=== PATIENT | female | born 1975 ===

== ENCOUNTER 2017-11-12 09:16 | Observation (INO) | payer OTHER ==
[2017-11-12 09:22] VITALS: BMI 34.7
--- NOTE | 2017-11-12 11:04 | ED PDOC ---
HPI: Hypertension/Hypotension Chief Complaint (Provider): high blood pressure History Per: Patient History/Exam Limitations: no limitations Onset/Duration Of Symptoms: Mins Current Symptoms Are (Timing): Still Present Associated Symptoms: denies: Chest Pain, Dyspnea, Dizziness, Blurred Vision, Focal Weakness, Headache Quality Of Symptoms: Asymptomatic Additional History Per: Patient Additional Complaint(s): 42 yr old F presents to ED with complaint of elevated blood pressure after being sent from [facility]. Patient denies any PMHx. Denies headache, once sided weakness or numbness, dizziness, chest pain, visual changes, SOB, fevers, chills, dysuria or sweating. Reports she had a recent abnormal mammogram and was going to be evaluated for possible right breast biopsy. Today she did not eat or drink anything before leaving the house and felt very nervous about seeing marketing services specialist. LMP: 11/12/17 PMD: Micheal Joseph PMHx: obesity, recent abnormal mammogram (suspicious right breast nodule) SurgHx: appendectomy, right oophorectomy (d/t fibroid removal) FMHx: mother has HTN and was diagnosed with uterine cancer at 45 yrs old, father is 65 yrs old has HTN, siblings are healthy Medications: Meredith PRN Allergies: NKDA <Donya Pruitt - Last Filed: 11/12/17 13:17> Additional Complaint(s): High bp at clnic. No chest pain. <Jasen Heart - Last Filed: 11/12/17 13:55> Time Seen by Provider: 11/12/17 09:44 Chief Complaint (Nursing): High Blood Pressure Past Medical History Vital Signs: Last Vital Signs Temp 98.1 F 11/12/17 09:22 Pulse 90 11/12/17 09:22 Resp 18 11/12/17 10:12 BP 160/100 H 11/12/17 10:12 Pulse Ox 97 11/12/17 10:12 - Medical History PMH: No Chronic Diseases - Surgical History Surgical History: Appendectomy Other surgeries: right oophorectomy (d/t fibroid removal) - Family History Family History: States: Hypertension, Other Other Family History: mother has HTN and was diagnosed with uterine cancer at 45 yrs old, father is 65 yrs old has HTN, siblings are healthy - Living Arrangements Living Arrangements: With Family - Social History Current smoker - smoking cessation education provided: No Ex-Smoker (has not smoked in the last 12 months): No Alcohol: None Drugs: Denies <Donya Pruitt - Last Filed: 11/12/17 13:17> Reviewed: Nursing Documentation, Vital Signs Vital Signs: Last Vital Signs Temp 98.1 F 11/12/17 09:22 Pulse 88 11/12/17 13:37 Resp 20 11/12/17 13:37 BP 180/115 H 11/12/17 13:37 Pulse Ox 98 11/12/17 13:37 - Medical History PMH: No Chronic Diseases <Jasen Heart - Last Filed: 11/12/17 13:55> - Home Medications Home Medications: Ambulatory Orders Medication Instructions Recorded No Known Home Med 11/12/17 - Allergies Allergies/Adverse Reactions: Allergies Allergy/AdvReac Type Severity Reaction Status Date / Time No Known Allergies Allergy Verified 11/12/17 10:11 Review of Systems Constitutional: Negative for: Fever, Chills, Weakness Eyes: Negative for: Vision Change ENT: Negative for: Ear Pain, Nose Discharge, Throat Pain Cardiovascular: Negative for: Chest Pain, Palpitations, Edema, Light Headedness Respiratory: Negative for: Cough, Shortness of Breath, Hemoptysis, Wheezing Gastrointestinal: Negative for: Nausea, Vomiting, Abdominal Pain, Diarrhea, Constipation Genitourinary Female: Negative for: Dysuria, Frequency Musculoskeletal: Negative for: Neck Pain, Shoulder Pain, Arm Pain Skin: Negative for: Rash, Lesions Neurological: Negative for: Weakness, Numbness, Confusion, Seizures, Headache, Dizziness Psych: Negative for: Anxiety, Depression <Donya Pruitt - Last Filed: 11/12/17 13:17> Physical Exam - Physical Exam Appears: Positive for: No Acute Distress Head Exam: Positive for: ATRAUMATIC, NORMOCEPHALIC Skin: Positive for: Normal Color, Warm, Dry Eye Exam: Positive for: EOMI, PERRL ENT: Positive for: Normal ENT Inspection Neck: Positive for: Painless ROM, Supple Cardiovascular/Chest: Positive for: Regular Rate, Rhythm. Negative for: Gallop , JVD, Murmur, Tachycardia Respiratory: Positive for: Normal Breath Sounds. Negative for: Crackles, Rales , Rhonchi Pulses-Carotid (L): 2+ Pulses-Carotid (R): 2+ Pulses-Radial (L): 2+ Pulses-Radial (R): 2+ Gastrointestinal/Abdominal: Positive for: Normal Exam Extremity: Positive for: Normal ROM. Negative for: Pedal Edema, Calf Tenderness Neurologic/Psych: Positive for: Alert, salad chef II-XII (grossly intact), Oriented, Mood/Affect (normal/full), Gait (normal). Negative for: Motor/Sensory Deficits <Donya Pruitt - Last Filed: 11/12/17 13:17> - Physical Exam Neck: Positive for: Painless ROM Cardiovascular/Chest: Positive for: Regular Rate, Rhythm <Jasen Heart - Last Filed: 11/12/17 13:55> - Laboratory Results Result Diagrams: 11/12/17 11:14 11/12/17 11:14 - ECG O2 Sat by Pulse Oximetry: 97 - Progress ED Course And Treament: -EKG: nonspecific ST-T wave depression in lead I, V4-V6 -cardiac monitoring -10:12 Patient in no acute distress, BP improved to 160/100 mmHg without medication -11:12 Patient tolerating PO fluids and solids -11:14 BP 180/109 mmHg, Clonidine 0.1 mg PO once ordered -12:30 BP 197/126 mmHg, labetalol 10mg IV once ordered -repeat EKG 13:[address]-T wave depression persists in lead I <Donya Pruitt - Last Filed: 11/12/17 13:17> - Laboratory Results Result Diagrams: 11/12/17 11:14 11/12/17 11:14 Interpretation Of Abn Labs: no acute - ECG ECG: Positive for: Interpreted By Me, Viewed By Me ECG Rhythm: Positive for: Nonspecific Changes Pulse Ox Interpretation: Normal - Progress ED Course And Treament: 1354: Pt. bp not improving with meds. EKG abnormal. Spoke with Dr. Park. Will admit tele obs. <Jasen Heart - Last Filed: 11/12/17 13:55> Disposition <Donya Pruitt - Last Filed: 11/12/17 13:17> - Patient ED Disposition Is Patient to be Admitted: Yes Counseled Patient/Family Regarding: Studies Performed, Diagnosis - Disposition Disposition Time: 13:55 - Pt Status Changed To: Hospital Disposition Of: Observation - POA Present On Arrival: None <Jasen Heart - Last Filed: 11/12/17 13:55> - Clinical Impression Clinical Impression: HTN (hypertension), Abnormal EKG - Disposition Condition: FAIR
[2017-11-12 11:22] LABS: BASO # 0.1 K/uL (0.0-0.2); EOS # 0.1 K/uL (0.0-0.7); EOS % 1.8 % (0.0-4.0); HEMOGLOBIN 14.2 g/dL (12.0-16.0); LYMPH # 1.7 K/uL (1.0-4.3); LYMPH % 24.2 % (20.0-40.0); MEAN CELL VOLUME 89.1 fl (81.0-99.0); MEAN CORPUSCULAR HEMOGLOBIN 30.2 pg (27.0-31.0); MEAN CORPUSCULAR HGB CONC 33.9 g/dL (33.0-37.0); MONO # 0.3 K/uL (0.0-0.8); MONO % 4.8 % (0.0-10.0); NEUT # 4.9 K/uL (1.8-7.0); NEUT % 68.2 % (50.0-75.0); RBC 4.7 Mil/uL (3.80-5.20); RED CELL DISTRIBUTION WIDTH 13.9 % (11.5-14.5); WHITE BLOOD COUNT 7.2 K/uL (4.8-10.8)
[2017-11-12 11:32] LABS: BLOOD UREA NITROGEN 9 mg/dl (7-17); GFR AFRICAN-AMERICAN > 60; GFR NON-AFRICAN AMERICAN > 60
[2017-11-12] MEDS ORDERED: Labetalol 5 mg/ml Inj 20ML IVP STA (12:57)
[2017-11-12 13:40] VITALS: RESP 20; O2SAT 98
--- NOTE | 2017-11-12 14:24 | CP.PCM.CON ---
History of Present Illness - History of Present Illness History of Present Illness: 42 yo female with no significant PMH sent to ER for evaluation and management of elevated BP noted in surgical clinic. Patient denied headache, dizziness, chest pain or SOB. Patient was seen in surgery because of suspicious lesions in mammogram taken outside. Her initial BP on record was 222/89. She was given Clonidine 0.1m PO and Labetalol 10mg IVP. BP gradually went down until it was down to 150/86 when I saw her. Patient was completely asymptomatic and was also a little hesitant about being admitted when she did not have any symptoms at all. I spoke with ER physician, Dr Heart, and told him about the patient wishes and also my opinion that the patient did not have any criteria for admission at this time. Patient should be sent home with medication for hypertension such as Lopressor 50mg PO BID and should be followed up by her PCP, Dr Strickland. Past Patient History - Past Social History Alcohol: None Drugs: Denies - SURGICAL HISTORY Hx Appendectomy: Yes Meds Allergies/Adverse Reactions: Allergies Allergy/AdvReac Type Severity Reaction Status Date / Time No Known Allergies Allergy Verified 11/12/17 10:11 Physical Exam - Constitutional Appears: No Acute Distress - Head Exam Head Exam: ATRAUMATIC - Eye Exam Eye Exam: absent: Scleral icterus - Neck Exam Neck exam: Negative for: Meningismus - Respiratory Exam Respiratory Exam: absent: Rales, Rhonchi, Wheezes, Respiratory Distress - Cardiovascular Exam Cardiovascular Exam: REGULAR RHYTHM, +S1, +S2 Results - Vital Signs Recent Vital Signs: Last Vital Signs Temp 98.1 F 11/12/17 09:22 Pulse 88 11/12/17 13:37 Resp 20 11/12/17 13:37 BP 180/115 H 11/12/17 13:37 Pulse Ox 98 11/12/17 13:37 - Labs Result Diagrams: 11/12/17 11:14 11/12/17 11:14 Labs: Laboratory Results - last 24 hr 11/12/17 11/12/17 11:14 11:14 WBC 7.2 RBC 4.70 Hgb 14.2 Hct 41.8 MCV 89.1 MCH 30.2 MCHC 33.9 RDW 13.9 Plt Count 260 MPV 8.0 Neut % (Auto) 68.2 Lymph % (Auto) 24.2 Davison % (Auto) 4.8 Eos % (Auto) 1.8 Baso % (Auto) 1.0 Neut # (Auto) 4.9 Lymph # (Auto) 1.7 Davison # (Auto) 0.3 Eos # (Auto) 0.1 Baso # (Auto) 0.1 Sodium 141 Potassium 4.3 Chloride 104 Carbon Dioxide 22 Anion Gap 19 BUN 9 Creatinine 0.6 L Est GFR ( Amer) > 60 Est GFR (Non-Af Amer) > 60 Random Glucose 136 H Calcium 9.0 Troponin I < 0.0120
[2017-11-12 14:46] VITALS: BP 158/86; PULSE 76; TEMP 98
--- NOTE | 2017-11-13 07:17 | CARD ---
APPROVED REPORT EKG Measurement Heart [id number] <Conclusion> Normal sinus rhythm Nonspecific ST and T wave abnormality Prolonged QT Abnormal ECG
--- NOTE | 2017-11-13 07:20 | CARD ---
APPROVED REPORT EKG Measurement Heart [id number] <Conclusion> Normal sinus rhythm Possible Left atrial enlargement Nonspecific T wave abnormality Prolonged QT Abnormal ECG
== END 2017-11-12 14:45 | disposition home or self-care (01) ==
LOC: H.ER 09:16 → H.ERHOLD 13:51
DX: I10 Essential (primary) hypertension (principal); E66.9 Obesity, unspecified; Z68.34 Body mass index [BMI] 34.0-34.9, adult; R94.31 Abnormal electrocardiogram [ECG] [EKG]; R92.8 Other abnormal and inconclusive findings on diagnostic imaging of breast
CPT/HCPCS: 80048; 84484; 85025; 93005; 96374; 99285; G0378